=== PATIENT | female | born 1980 | race Caucasian/White ===

== ENCOUNTER 2016-12-09 19:33 | Inpatient (IN) | payer MEDICARE, OTHER ==
[~2016-12-09] VITALS: Ht 165.1 cm; Wt 67.1 kg
[~2016-12-09 19:33] MED LIST changes: -ONDA4TAB5 PO
[2016-12-09] MEDS ORDERED: HYDROMORPHONE 1 MG/1 ML DISP.SYRIN IM ONE (20:00)
[2016-12-09] MEDS ORDERED: HYDROMORPHONE 1 MG/1 ML DISP.SYRIN ONE (20:06)
[2016-12-09 20:50] LABS: CALCIUM 8.7 mg/dL (8.5-10.1); POTASSIUM 4.1 mmol/L (3.5-5.1)
[2016-12-09 20:53] LABS: CREATININE 1.9 mg/dL (0.6-1.3)
[2016-12-09] MEDS ORDERED: INSULIN REGULAR, HUMAN 100 UNIT in IV NORMAL SALINE 99 ML IV PRN ×4 (21:00→23:00)
[2016-12-09] MEDS ORDERED: IV NORMAL SALINE 1000 ML BAG IV ONE (21:00)
[2016-12-09 21:07] LABS: RED CELL DISTRIBUTION WIDTH 15.6 % (11.5-14.5)
[2016-12-09 21:14] LABS: WHITE BLOOD COUNT (AUTO) 6.5 K/uL (4.0-11.2)
[2016-12-09 21:15] LABS: HEMATOCRIT 34.6 % (37.0-47.0); HEMOGLOBIN 10.9 g/dL (12.0-16.0); MEAN CORPUSCULAR HEMOGLOBIN 33.2 uug (27.0-31.0); MEAN CORPUSCULAR HGB CONC 32 g/dL (32.0-37.0); MEAN CORPUSCULAR VOLUME 104.9 fL (81.0-99.0); PLATELET COUNT (AUTO) 245 K/uL (150-450)
[2016-12-09 21:16] LABS: BASOPHILS % (AUTO) 0.6 % (0.0-2.0); EOSINOPHILS % (AUTO) 0.3 % (0.0-7.0); LYMPHOCYTES # (AUTO) 1.4 K/uL (0.8-4.8); LYMPHOCYTES % (AUTO) 21.4 % (20.5-51.5); MONOCYTES # (AUTO) 0.6 K/uL (0.1-1.30); NEUTROPHILS # (AUTO) 4.5 K/uL (1.8-8.9); NEUTROPHILS % (AUTO) 68.7 % (38.5-71.5)
[2016-12-09 21:22] LABS: ALBUMIN 3.5 g/dL (3.4-5.0); BILIRUBIN,DIRECT 0.1 mg/dL (0.0-0.2); BILIRUBIN,TOTAL 0.5 mg/dL (0.2-1.0); TOTAL PROTEIN, SERUM 7.2 g/dL (6.4-8.2)
[2016-12-09] MEDS ORDERED: INSULIN REGULAR, HUMAN 300 UNIT/3 ML VIAL ONE (21:26)
[2016-12-09] MEDS ORDERED: ONDA4TAB5 PO (21:27)
[2016-12-09 21:29] LABS: *BILIRUBIN,URIN NEGATIVE (NEGATIVE); *BLOOD, URINE NEGATIVE (NEGATIVE); *CLARITY,URINE CLEAR (CLEAR); *COLOR,URINE YELLOW (YELLOW); *KETONES,URINE NEGATIVE (NEGATIVE); *PROTEIN,URINE NEGATIVE (NEGATIVE); *UROBILINOGEN,URINE 0.2 E.U./dl (NORMAL); LEUKOCYTE ESTERASE ,URINE NEGATIVE (NEGATIVE); NITRITE, URINE NEGATIVE (NEGATIVE); PH,URINE 6.5 (5.0-8.0)
[2016-12-09] MEDS ORDERED: ONDANSETRON IV *ER 4 MG/2 ML VIAL IV ONE (21:30)
[2016-12-09 21:34] LABS: ACANTHOCYTES 1+; ANISOCYTOSIS 1+; OVALOCYTES FEW
[2016-12-09 21:36] LABS: TROPONIN I < 0.017 ng/mL (0.00-0.056)
[2016-12-09 21:39] LABS: UGLUCOSE 2+ (NEGATIVE)
[2016-12-09 21:39] LABS: LACTIC ACID 2.5 mmol/L (0.4-2.0)
[2016-12-09] MEDS ORDERED: ONDANSETRON 4 MG/2 ML VIAL ONE (21:39)
[2016-12-09 21:40] LABS: RBC,URINE 0-3 /HPF (0-3); SQUAMOUS EPITHELIAL CELL,UR FEW /HPF (NONE SEEN); WBC,URINE 0-3 /HPF (0-3)
--- NOTE | 2016-12-09 22:43 | NUR ---
Pt. admitted to CCU , under care of Dr. Dominguez, Dx: Uncontrolled Diabetes Mellitus , Back pain Belongs List completed.
[2016-12-09 22:45] VITALS: BP 112/72
[2016-12-09 23:00] VITALS: BP 115/78
[2016-12-09] MEDS ORDERED: ONDANSETRON 4 MG/2 ML VIAL IV PRN (23:00)
[2016-12-09] MEDS ORDERED: ALBUTEROL SULFATE 1.25 MG/3 ML NEBU NEB PRN (23:00)
[2016-12-09] MEDS: TRAZODONE 100 MG TABLET PO SCH (23:00)
[2016-12-09] MEDS: FLUTICASONE/SALMETEROL 250/50 INHALER IH SCH (23:00)
[2016-12-09] MEDS ORDERED: ACETAMINOPHEN 325 MG TABLET PO PRN (23:00)
[2016-12-09] MEDS: BLOOD SUGAR DIAGNOSTIC 1 EACH STRIP VI PRN (23:00)
[2016-12-09] MEDS ORDERED: LORAZEPAM 2 MG/1 ML VIAL IV PRN (23:00)
[2016-12-09] MEDS: IV 1/2NS 1000 ML 1,000 ML IV PRN (23:15)
[2016-12-09] MEDS ORDERED: TRAZODONE 50 MG TABLET ONE (23:36)
[2016-12-10] VITALS (24 sets, daily range): BP systolic 91–114; BP diastolic 47–78
[2016-12-10] MEDS: BLOOD SUGAR DIAGNOSTIC 1 EACH STRIP VI PRN ×7 (00:01→06:00)
[2016-12-10] MEDS: MORPHINE SULFATE 2 MG/1 ML DISP.SYRIN IV PRN ×4 (00:26→20:31)
[2016-12-10] MEDS ORDERED: MORPHINE SULFATE 2 MG/1 ML DISP.SYRIN ONE ×2 (00:34→06:33)
--- NOTE | 2016-12-10 07:30 | NUR ---
PT IN NAD; VSS. PT IN NAD. PT IS A/OX4; PT IS ON CARDIAC MONITORING SHOWING NSR. PT ON RA SPO>93%. PT SKIN INTACT THROUGHOUT; SCD;S ON BLE; PT HAS A PATENT/INTACT 22G CATH THAT IS INFUSING IVF @ 90ML/HR. PT STATES PAIN IS 5/10; PT'S GOAL IS 5/10. PLEASE SEE NURSING NOTES FOR FURTHER DETAILS.
[2016-12-10 07:50] LABS: BASOPHILS # (AUTO) 0.2 K/uL (0.0-0.2); BASOPHILS % (AUTO) 2.7 % (0.0-2.0); EOSINOPHILS # (AUTO) 0.1 K/uL (0.0-0.7); EOSINOPHILS % (AUTO) 1.8 % (0.0-7.0); HEMATOCRIT 30.9 % (37.0-47.0); HEMOGLOBIN 9.9 g/dL (12.0-16.0); LYMPHOCYTES % (AUTO) 42.5 % (20.5-51.5); MEAN CORPUSCULAR HEMOGLOBIN 32.8 uug (27.0-31.0); MEAN CORPUSCULAR HGB CONC 32 g/dL (32.0-37.0); MEAN CORPUSCULAR VOLUME 102.1 fL (81.0-99.0); MONOCYTES # (AUTO) 0.8 K/uL (0.1-1.30); MONOCYTES % (AUTO) 10.7 % (0.0-11.0); NEUTROPHILS % (AUTO) 42.3 % (38.5-71.5); PLATELET COUNT (AUTO) 233 K/uL (150-450); RED BLOOD CELL COUNT(AUTO) 3.03 MIL/uL (4.20-5.40); RED CELL DISTRIBUTION WIDTH 15.4 % (11.5-14.5); WHITE BLOOD COUNT (AUTO) 7.1 K/uL (4.0-11.2)
[2016-12-10] MEDS ORDERED: Medication Not On Formulary EA (Lipase/Protease/Amylase (Creon Dr 36,000 Units Capsule) PO SCH (08:00)
[2016-12-10 08:21] LABS: THYROID STIMULATING HORMONE 4.431 mIU/mL (0.358-3.740)
[2016-12-10 08:37] LABS: ALBUMIN 2.9 g/dL (3.4-5.0); BILIRUBIN,TOTAL 0.4 mg/dL (0.2-1.0); CALCIUM 8.3 mg/dL (8.5-10.1); CREATININE 1.2 mg/dL (0.6-1.3); POTASSIUM 4.3 mmol/L (3.5-5.1)
[2016-12-10 08:38] LABS: MAGNESIUM 1.8 mg/dL (1.8-2.4); TOTAL PROTEIN, SERUM 6.1 g/dL (6.4-8.2)
[2016-12-10] MEDS: PANTOPRAZOLE SODIUM 40 MG TABLET.DR PO SCH ×2 (09:14→16:32)
[2016-12-10] MEDS: LIPASE PO SCH ×3 (09:14→16:33)
[2016-12-10] MEDS: AMYLASE PO SCH ×3 (09:14→16:33)
[2016-12-10] MEDS: PROTEASE PO SCH ×3 (09:14→16:33)
[2016-12-10] MEDS: PREGABALIN 25 MG CAPSULE PO SCH ×2 (09:14→16:32)
[2016-12-10] MEDS: SERTRALINE HCL 50 MG TABLET PO SCH (09:14)
[2016-12-10] MEDS: HALOPERIDOL 5 MG TABLET PO SCH ×2 (09:15→16:32)
[2016-12-10] MEDS: CHOLECALCIFEROL 1,000 UNIT TABLET PO SCH (09:15)
[2016-12-10] MEDS: AZATHIOPRINE 50 MG TABLET PO SCH (09:16)
[2016-12-10] MEDS: NICOTINE 21 MG/24HR PATCH TD SCH (09:16)
--- NOTE | 2016-12-10 10:00 | NUR ---
PT PLACED ON ACHS MODERATE SCALE PER ORDER
[2016-12-10] MEDS ORDERED: BLOOD SUGAR DIAGNOSTIC 1 EACH STRIP VI ONE (10:15)
[2016-12-10] MEDS ORDERED: DEXTROSE 50% 50 ML DISP.SYRIN IV PRN (10:15)
[2016-12-10] MEDS ORDERED: INSULIN REGULAR, HUMAN 300 UNITS/3 ML VIAL SQ PRN (10:15)
[2016-12-10 10:16] LABS: ANISOCYTOSIS 1+; TEAR DROP CELLS 1+
[2016-12-10] MEDS: CLONAZEPAM 0.5 MG TABLET PO SCH ×2 (10:18→16:32)
[2016-12-10] MEDS: INSULIN REGULAR, HUMAN 300 UNIT/3 ML VIAL SQ PRN ×3 (10:30→21:27)
[2016-12-10] MEDS: CYANOCOBALAMIN 1000 MCG/ML VIAL IM SCH (11:16)
[2016-12-10] MEDS: FLUTICASONE/SALMETEROL 250/50 INHALER IH SCH ×2 (11:21→23:12)
[2016-12-10] MEDS: IV 1/2NS 1000 ML 1,000 ML IV PRN ×2 (11:31→22:31)
[2016-12-10] MEDS: BLOOD SUGAR DIAGNOSTIC 1 EACH STRIP VI SCH ×3 (14:29→21:00)
[2016-12-10] MEDS: TRAZODONE 100 MG TABLET PO SCH (21:28)
[2016-12-11] VITALS (7 sets, daily range): BP systolic 92–113; BP diastolic 65–78
[2016-12-11] MEDS: MORPHINE SULFATE 2 MG/1 ML DISP.SYRIN IV PRN ×2 (05:29→11:59)
[2016-12-11 06:12] LABS: BASOPHILS # (AUTO) 0.1 K/uL (0.0-0.2); BASOPHILS % (AUTO) 1.8 % (0.0-2.0); EOSINOPHILS # (AUTO) 0.1 K/uL (0.0-0.7); EOSINOPHILS % (AUTO) 1.5 % (0.0-7.0); HEMATOCRIT 30.4 % (37.0-47.0); HEMOGLOBIN 9.5 g/dL (12.0-16.0); LYMPHOCYTES # (AUTO) 2.6 K/uL (0.8-4.8); MEAN CORPUSCULAR HEMOGLOBIN 32.1 uug (27.0-31.0); MEAN CORPUSCULAR HGB CONC 31 g/dL (32.0-37.0); MONOCYTES # (AUTO) 0.4 K/uL (0.1-1.30); MONOCYTES % (AUTO) 6.1 % (0.0-11.0); NEUTROPHILS # (AUTO) 2.8 K/uL (1.8-8.9); NEUTROPHILS % (AUTO) 47.6 % (38.5-71.5); PLATELET COUNT (AUTO) 238 K/uL (150-450); RED BLOOD CELL COUNT(AUTO) 2.96 MIL/uL (4.20-5.40); RED CELL DISTRIBUTION WIDTH 15.3 % (11.5-14.5)
[2016-12-11 06:21] LABS: ALBUMIN 2.8 g/dL (3.4-5.0); BILIRUBIN,TOTAL 0.3 mg/dL (0.2-1.0); CALCIUM 8.3 mg/dL (8.5-10.1); CREATININE 1.2 mg/dL (0.6-1.3); MAGNESIUM 1.7 mg/dL (1.8-2.4); PHOSPHOROUS 3.4 mg/dL (2.5-4.9); POTASSIUM 5.2 mmol/L (3.5-5.1); TOTAL PROTEIN, SERUM 5.9 g/dL (6.4-8.2)
[2016-12-11] MEDS: BLOOD SUGAR DIAGNOSTIC 1 EACH STRIP VI SCH ×2 (06:33→11:40)
[2016-12-11] MEDS: INSULIN REGULAR, HUMAN 300 UNIT/3 ML VIAL SQ PRN (06:34)
--- NOTE | 2016-12-11 08:33 | NUR ---
RECHECKED PATIENT BLOOD SUGAR 267. PATIENT INSULIN COVERAGED EARLY DUE TO CRITICAL HIGH IN AM. PATIENT REFUSING BREAKFAST AT THIS TIME.
[2016-12-11] MEDS: CYANOCOBALAMIN 1000 MCG/ML VIAL IM SCH ×2 (08:45→09:00)
[2016-12-11] MEDS: HALOPERIDOL 5 MG TABLET PO SCH (08:46)
[2016-12-11] MEDS: AZATHIOPRINE 50 MG TABLET PO SCH (08:46)
[2016-12-11] MEDS: CLONAZEPAM 0.5 MG TABLET PO SCH (08:47)
[2016-12-11] MEDS: PREGABALIN 25 MG CAPSULE PO SCH (08:48)
[2016-12-11] MEDS: PANTOPRAZOLE SODIUM 40 MG TABLET.DR PO SCH (08:49)
[2016-12-11] MEDS: PROTEASE PO SCH ×2 (08:49→11:44)
[2016-12-11] MEDS: LIPASE PO SCH ×2 (08:49→11:44)
[2016-12-11] MEDS: AMYLASE PO SCH ×2 (08:49→11:44)
[2016-12-11] MEDS: CHOLECALCIFEROL 1,000 UNIT TABLET PO SCH (08:51)
[2016-12-11] MEDS: SERTRALINE HCL 50 MG TABLET PO SCH (08:51)
[2016-12-11] MEDS: NICOTINE 21 MG/24HR PATCH TD SCH (08:51)
[2016-12-11] MEDS ORDERED: MAGNESIUM OXIDE 400 MG TABLET PO ONE (09:00)
--- NOTE | 2016-12-11 10:51 | NUR ---
DOCTOR LARY IN UNIT TO SEE PATIENT. PLANNING FOR DISCHARGE. PATIENT HAS INSULIN PUMP ADAPTER THAT WILL BE BROUGHT IN FROM HOME.
--- NOTE | 2016-12-11 11:27 | NUR ---
Discharge Plan: The patient's discharge plan is to return back home [[id number], [place] [address]] once medically cleared.
[2016-12-11] MEDS: FLUTICASONE/SALMETEROL 250/50 INHALER IH SCH (11:44)
--- NOTE | 2016-12-11 12:56 | NUR ---
PATIENT REFUSED BOTH VACCINES FLU/ PNA
--- NOTE | 2016-12-11 13:26 | NUR ---
ALL DISCHARGE PAPERWORK GIVEN. PATIENT UNDERSTOOD AND SIGNED. INSTRUCTED PATIENT TO CHECK BLOOD SUGAR PRIOR TO USING INSULIN PUMP WHEN SHE GETS HOME. PATIENT IS WAITING IN BED FOR HER RIDE TO COME.
--- NOTE | 2016-12-11 14:28 | NUR ---
Patient is 36 y/o female with hx of psychiatric issues and difficult to control diabetes, present due to fell out of bed and injuring her back. After 2 days in ICU patient was eager to leave the hospital. Time of visit ,gave diet education and dm handout to patient prior to d/c home. encourage pt to follow low sugar and follow right portion sizes. was tolerating current diet ([id number]) and eating 50-80% of meals. Anthropometry:Ht 65",current wt is 148lb,BMI 24.6-wnl labs: 12/11 POC 94-HAS BEEN IMPROVED,GLUCOSE 343,[id number] NUTRITION DIAGNOSIS: ALTERED NUTRITION LAB VALUES RELATED TO KNOWLEDGE DEFICIT, EVIDENCED BY ABOVE LABS INTERVENTION: DIET EDUCATION PROVIDED PRIOR TO D/C MONITOR:PO INTAKE,WT,NEW LABS Addendum: 12/11/16 at [address] Amended: Links added.
== END 2016-12-11 13:30 | disposition home or self-care (01) | DRG 637 ==
LOC: ER 19:33 → CCU 22:07
PROVIDERS: ADMIT Internal Medicine; ATTEND Internal Medicine
DX: E11.65 Type 2 diabetes mellitus with hyperglycemia (principal); N17.0 Acute kidney failure with tubular necrosis; D68.59 Other primary thrombophilia; Z96.41 Presence of insulin pump (external) (internal); Y92.003 Bedroom of unspecified non-institutional (private) residence as the place of occurrence of the external cause; W06.XXXA Fall from bed, initial encounter; S20.229A Contusion of unspecified back wall of thorax, initial encounter; Z79.4 Long term (current) use of insulin; Z88.2 Allergy status to sulfonamides; Z88.1 Allergy status to other antibiotic agents; Z91.041 Radiographic dye allergy status; Z91.012 Allergy to eggs; Z91.040 Latex allergy status; Z91.011 Allergy to milk products; M32.9 Systemic lupus erythematosus, unspecified; Z86.73 Personal history of transient ischemic attack (TIA), and cerebral infarction without residual deficits; M79.7 Fibromyalgia; G89.4 Chronic pain syndrome; H54.8 Legal blindness, as defined in USA; Z90.81 Acquired absence of spleen; Z90.411 Acquired partial absence of pancreas; E11.43 Type 2 diabetes mellitus with diabetic autonomic (poly)neuropathy; E87.5 Hyperkalemia; V89.2XXS Person injured in unspecified motor-vehicle accident, traffic, sequela; Z74.09 Other reduced mobility; F31.9 Bipolar disorder, unspecified; F41.9 Anxiety disorder, unspecified; D53.9 Nutritional anemia, unspecified; F17.210 Nicotine dependence, cigarettes, uncomplicated; E53.8 Deficiency of other specified B group vitamins; Z79.899 Other long term (current) drug therapy
CPT/HCPCS: 36415; 70030-TC; 71010; 72072; 83605; 83690; 83735; 84100; 84443; 84703; 85025; 85730; 86140; 87040; 87086; 93005; A4663; J1170; J1815; J2270; J2405; J3420; J3490; J7030; J7500

== ENCOUNTER → 2016-12-09 | Emergency (ER) | payer SELFPAY ==
[~2016-12-09] MED LIST: ALBU2.5V38 NEB; ALBU8HFA4 INH; AZAT50TA PO; CHOL50004 PO; CLON0.5T PO; DRON5CAP PO; FLUT1DIS28 IH; HALO10TA13 PO; HYDR200T4 PO; INSU100V; LIPA1CAP15 PO; MILN50TA PO; ONDA4TAB5 PO; ONDA4VIA30 IV; OXYC-34 PO; PANT40TA4 PO; PREG150C PO; RIZA10TA28 PO; SERT50TA PO; TRAZ-144 PO; TRAZ-147 PO
== END | disposition left against medical advice (07) ==
LOC: EDBD → CANPREER → ER 19:20 → MERGE 20:00
DX: Z53.21 Procedure and treatment not carried out due to patient leaving prior to being seen by health care provider (principal)

== ENCOUNTER 2017-01-12 15:30 | Inpatient (IN) | payer MEDICARE, OTHER ==
[~2017-01-12] VITALS: Ht 162.6 cm; Wt 62.1 kg
[~2017-01-12 15:30] MED LIST changes: -HYDR200T4 PO; -INSU100V; +ONDA4TAB5 PO; -ONDA4VIA30 IV; -OXYC-34 PO
--- NOTE | 2017-01-12 15:56 | NUR ---
DR MARTINEZ AT THE BEDSIDE FOR EVAL AND EXAM.
[2017-01-12] MEDS ORDERED: IV NORMAL SALINE 1000 ML BAG IV ONE (16:15)
[2017-01-12] MEDS ORDERED: ONDANSETRON 4 MG/2 ML VIAL IV ONE (16:15)
[2017-01-12] MEDS ORDERED: MORPHINE SULFATE 2 MG/1 ML DISP.SYRIN IV ONE (16:15)
[2017-01-12 16:32] LABS: BASOPHILS # (AUTO) 0.2 K/uL (0.0-8.0); BASOPHILS % (AUTO) 0.9 % (0.0-2.0); HEMATOCRIT 49.8 % (37-47); HEMOGLOBIN 16.9 G/DL (12.0-16.0); LYMPHOCYTES # (AUTO) 0.9 K/uL (20.0-40.0); LYMPHOCYTES % (AUTO) 4.7 % (20.5-51.5); MEAN CORPUSCULAR HEMOGLOBIN 34.1 UUG (27.0-31.0); MEAN CORPUSCULAR HGB CONC 34 g/dL (32.0-37.0); MEAN CORPUSCULAR VOLUME 100.8 FL (81.0-99.0); MONOCYTES # (AUTO) 0.5 K/uL (2.0-10.0); MONOCYTES % (AUTO) 2.5 % (0.0-11.0); NEUTROPHILS # (AUTO) 17.7 K/uL (1.8-8.9); NEUTROPHILS % (AUTO) 91.9 % (38.5-71.5); PLATELET COUNT (AUTO) 249 K/UL (150-450); RED BLOOD CELL COUNT(AUTO) 4.94 MIL/UL (4.2-5.4); RED CELL DISTRIBUTION WIDTH 14.7 % (11.5-14.5); WHITE BLOOD COUNT (AUTO) 19.3 K/UL (4.0-11.2)
[2017-01-12] MEDS ORDERED: MORPHINE SULFATE 4 MG/1 ML DISP.SYRIN ONE (16:34)
[2017-01-12] MEDS ORDERED: ONDANSETRON 4 MG/2 ML VIAL ONE ×2 (16:34→17:41)
[2017-01-12 16:42] LABS: CALCIUM 9.9 mg/dL (8.5-10.1); POTASSIUM 2.9 mmol/L (3.5-5.1)
[2017-01-12 16:45] LABS: CREATININE 2.3 mg/dL (0.6-1.3)
[2017-01-12 16:48] LABS: ALBUMIN 4.2 g/dL (3.4-5.0); BILIRUBIN,DIRECT 0.2 mg/dL (0.0-0.2); TOTAL PROTEIN, SERUM 8.5 g/dL (6.4-8.2)
[2017-01-12] MEDS ORDERED: POTASSIUM CHLORIDE 20 MEQ TAB.PRT.SR PO ONE (17:15)
[2017-01-12] MEDS ORDERED: ONDANSETRON IV *ER 4 MG/2 ML VIAL IV ONE (17:30)
[2017-01-12] MEDS ORDERED: POTASSIUM CHLORIDE 20 MEQ TAB.PRT.SR ONE (17:31)
[2017-01-12 17:37] LABS: *URINE HCG, QUAL NEGATIVE (NEGATIVE)
[2017-01-12 17:38] LABS: *BLOOD, URINE 2+ (NEGATIVE); *CLARITY,URINE CLOUDY (CLEAR); *COLOR,URINE YELLOW (YELLOW); *KETONES,URINE TRACE (NEGATIVE); LEUKOCYTE ESTERASE ,URINE NEGATIVE (NEGATIVE); NITRITE, URINE NEGATIVE (NEGATIVE); UGLUCOSE NEGATIVE (NEGATIVE)
[2017-01-12 17:40] LABS: *BILIRUBIN,URIN 2+ (NEGATIVE); *PROTEIN,URINE 3+ (NEGATIVE)
[2017-01-12 17:46] LABS: ICTOTEST POSITIVE (NEGATIVE)
[2017-01-12 17:49] LABS: BACTERIA,URINE FEW /HPF (NONE SEEN); SQUAMOUS EPITHELIAL CELL,UR MODERATE /HPF (NONE SEEN); WBC,URINE 0-3 /HPF (0-3)
[2017-01-12] MEDS ORDERED: LORAZEPAM 2 MG/1 ML VIAL IV PRN (18:00)
[2017-01-12] MEDS ORDERED: ONDANSETRON 4 MG/2 ML VIAL IV PRN (18:00)
[2017-01-12] MEDS ORDERED: ALBUTEROL SULFATE 2.5 MG/3 ML NEBU NEB PRN (18:00)
--- NOTE | 2017-01-12 18:02 | NUR ---
Patient is resting comfortably in bed with eyes closed, NAD NOTED.
[2017-01-12] MEDS: BLOOD SUGAR DIAGNOSTIC 1 EACH STRIP VI SCH ×2 (18:15→23:34)
[2017-01-12] MEDS ORDERED: DEXTROSE 50% 50 ML DISP.SYRIN IV PRN (18:15)
[2017-01-12] MEDS ORDERED: ALBUTEROL SULFATE 2.5 MG/3 ML NEBU ONE (18:22)
--- NOTE | 2017-01-12 19:00 | NUR ---
Received report from CIARA Fatima RN.
--- NOTE | 2017-01-12 19:24 | NUR ---
CLINICAL PHARMACY NOTE:VANCOMYCIN DOSING Request for vancomycin dosing on 36 y/o female 5'5" 150lbs for suspected infection Temp 97.9, BUN 40, Scr 2.3 WBC 19.3 also on Merrem Start Vancomycin 1gm ivpb q30h. Estimated trough 14.7. Will order trough level prior to 4th dose. Will continue to monitor.
--- NOTE | 2017-01-12 19:38 | NUR ---
Pt. admitted to TELE, under care of Dr. Dominguez Belongs List completed
[2017-01-12 20:00] VITALS: BP 156/104
--- NOTE | 2017-01-12 20:00 | NUR ---
Admitted patient with diagnosis of Dehydration and Renal Failure. AAO x 4, accompanied by her caregiver. Routine admission care done. Plan of care initiated.
[2017-01-12] MEDS: IV 1/2NS 1000 ML 1,000 ML IV PRN (20:57)
[2017-01-12] MEDS ORDERED: VANCOMYCIN IV 1 G in PREMIXED 0 EACH IV SCH (21:00)
[2017-01-12] MEDS: MEROPENEM 500 MG in IV NORMAL SALINE 50 ML IV SCH (21:09)
--- NOTE | 2017-01-12 21:09 | NUR ---
Complaint of mid abdominal pain in scale of 10/10, medicated as needed and ordered. Will monitor.
[2017-01-12] MEDS: MORPHINE SULFATE 2 MG/1 ML DISP.SYRIN IV PRN (21:10)
[2017-01-12] MEDS: INSULIN REGULAR, HUMAN 300 UNIT/3 ML VIAL SQ PRN ×2 (21:22→23:37)
[2017-01-12] MEDS: FLUTICASONE/SALMETEROL 250/50 INHALER IH SCH (21:24)
--- NOTE | 2017-01-12 21:40 | NUR ---
Resting comfortably at this time, denies any pain/discomforts. Safety measures maintained.
[2017-01-13] VITALS (13 sets, daily range): BP systolic 102–156; BP diastolic 68–108
--- NOTE | 2017-01-13 | NUR ---
BS 368 mg/dl. Humalog insulin coverage given per sliding scale. Pt denies any s/s of hyperglycemia.
[2017-01-13] MEDS: MORPHINE SULFATE 2 MG/1 ML DISP.SYRIN IV PRN ×4 (01:30→16:04)
--- NOTE | 2017-01-13 01:30 | NUR ---
Medicated for pain as needed and ordered. Will monitor.
[2017-01-13] MEDS: BLOOD SUGAR DIAGNOSTIC 1 EACH STRIP VI SCH ×8 (05:51→20:11)
--- NOTE | 2017-01-13 06:16 | NUR ---
Medicated 3x for abdominal pain throughout the shift with relief. Slept at short interval. BS at 0553 dropped to 59mg/dl. D50% was given as ordered and needed. Rechecked BS after 15 minutes 332 mg/dl. Will monitor. Charge Nurse aware.
--- NOTE | 2017-01-13 06:50 | NUR ---
BS rechecked this time 299 mg/dl. Continue to monitor.
--- NOTE | 2017-01-13 06:58 | NUR ---
Report given to Am nurse.
--- NOTE | 2017-01-13 07:00 | NUR ---
PATIENT RECEIVED IN ROOM RESTING IN BED WITH EYES CLOSED, EASILY AWAKEN IN NO ACUTE DISTRESS. SR ON CONTROL TOWER RADIO OPERATOR. RESPIRATIONS EVEN AND UNLABORED. IVF RUNNING 1/2 NS. SAFETY MAINTAINED. 2
[2017-01-13 07:02] LABS: BASOPHILS # (AUTO) 0.1 K/uL (0.0-8.0); BASOPHILS % (AUTO) 0.4 % (0.0-2.0); EOSINOPHILS % (AUTO) 0.2 % (0.0-7.0); HEMATOCRIT 42.8 % (37-47); HEMOGLOBIN 14.6 G/DL (12.0-16.0); LYMPHOCYTES # (AUTO) 1.9 K/uL (20.0-40.0); LYMPHOCYTES % (AUTO) 13.8 % (20.5-51.5); MEAN CORPUSCULAR HEMOGLOBIN 34.2 UUG (27.0-31.0); MEAN CORPUSCULAR HGB CONC 34 g/dL (32.0-37.0); MEAN CORPUSCULAR VOLUME 100.3 FL (81.0-99.0); MONOCYTES # (AUTO) 1.1 K/uL (2.0-10.0); MONOCYTES % (AUTO) 7.7 % (0.0-11.0); NEUTROPHILS # (AUTO) 10.9 K/uL (1.8-8.9); NEUTROPHILS % (AUTO) 77.9 % (38.5-71.5); PLATELET COUNT (AUTO) 215 K/UL (150-450); RED BLOOD CELL COUNT(AUTO) 4.26 MIL/UL (4.2-5.4); RED CELL DISTRIBUTION WIDTH 15.1 % (11.5-14.5)
[2017-01-13 07:03] LABS: ALBUMIN 3.3 g/dL (3.4-5.0); BILIRUBIN,TOTAL 0.7 mg/dL (0.2-1.0); CALCIUM 8.7 mg/dL (8.5-10.1); MAGNESIUM 2.1 mg/dL (1.8-2.4); PHOSPHOROUS 2.6 mg/dL (2.5-4.9); POTASSIUM 3.5 mmol/L (3.5-5.1); TOTAL PROTEIN, SERUM 6.8 g/dL (6.4-8.2)
[2017-01-13 07:05] LABS: CREATININE 1.5 mg/dL (0.6-1.3)
[2017-01-13] MEDS: PANTOPRAZOLE SODIUM 40 MG VIAL IV SCH (08:09)
[2017-01-13] MEDS: FLUTICASONE/SALMETEROL 250/50 INHALER IH SCH ×2 (08:09→20:25)
[2017-01-13] MEDS: MEROPENEM 500 MG in IV NORMAL SALINE 50 ML IV SCH ×2 (08:10→20:10)
--- NOTE | 2017-01-13 10:02 | NUR ---
Clinical Pharmacy Note: Vancomycin Dosing per Pharmacy Subjective: Vancomycin IV to continue on this 36 yo female for leukocytosis (waiting for MD note). Objective: BUN 31/Scr 1.5 WBC 14 Temperature 98 ht 5'5'' wt 150lb Assessment/Plan: Since srcr has decreased, will change vancomycin dose from 1gm IVPB q30h to 1gm IVPB q19h for predicted vancomycin trough level of 17.8 at steady state. Second dose is due today at 1700. Plan to draw vancomycin trough level before 4th dose (not yet ordered) Will continue to monitor and order another level/adjust regimen if renal function were to change. Will follow daily.
[2017-01-13 10:13] LABS: ANISOCYTOSIS 1+; BAND % (MANUAL) 11 % (0-10); EOSINOPHILS % (MANUAL) 1 % (0-8); LYMPHOCYTES % (MANUAL) 16 % (20-40); MONOCYTES % (MANUAL) 5 % (2-10); NEUTROPHILS % (MANUAL) 67 % (42-75); PLATELET ESTIMATE ADEQUATE
[2017-01-13] MEDS: IV 1/2NS 1000 ML 1,000 ML IV PRN (10:53)
[2017-01-13] MEDS: INSULIN REGULAR, HUMAN 300 UNIT/3 ML VIAL SQ PRN (12:18)
[2017-01-13] MEDS ORDERED: INSULIN REGULAR, HUMAN 300 UNIT/3 ML VIAL SQ PRN ×2 (12:30→17:45)
[2017-01-13] MEDS ORDERED: INSULIN REGULAR, HUMAN 300 UNIT/3 ML VIAL SQ ONE (12:30)
[2017-01-13] MEDS ORDERED: INSULIN REGULAR, HUMAN 300 UNITS/3 ML VIAL SQ PRN ×2 (12:30→17:45)
[2017-01-13] MEDS ORDERED: DEXTROSE 50% 50 ML DISP.SYRIN IV PRN ×2 (12:30→17:45)
--- NOTE | 2017-01-13 12:35 | NUR ---
PATIENT'S BS 518. ALERT AWAKE AND ORIENTED X4, ASYMPTOMATIC. DETAILED REPORT GIVEN TO JO SCHWARZ POLICE STENOGRAPHER. SEE NEW ORDERS.
[2017-01-13] MEDS ORDERED: MIRALAX 17 GM POWD.PACK PO PRN (13:15)
[2017-01-13] MEDS ORDERED: MILNACIPRAN HCL 50 MG PO SCH (13:15)
[2017-01-13] MEDS ORDERED: Medication Not On Formulary EA (Lipase/Protease/Amylase (Creon Dr 36,000 Units Capsule) PO SCH (13:15)
[2017-01-13] MEDS ORDERED: Medication Not On Formulary EA (Pregabalin (Lyrica) 200 MG) PO SCH (13:15)
[2017-01-13] MEDS: SERTRALINE HCL 50 MG TABLET PO SCH (13:48)
[2017-01-13] MEDS: DOCUSATE SODIUM 100 MG CAPSULE PO SCH ×2 (13:48→20:25)
[2017-01-13] MEDS: CHOLECALCIFEROL 1,000 UNIT TABLET PO SCH (13:48)
--- NOTE | 2017-01-13 14:02 | NUR ---
SBAR REPORT GIVEN TO PRINCESS RUFF.
--- NOTE | 2017-01-13 14:15 | NUR ---
PATIENT TRANSFERRED TO CCU.
--- NOTE | 2017-01-13 14:26 | NUR ---
Patient down from telemetry vitals stable Hr. 104, RR 14, 128/91. blood sugar of 421mm/hg. Saturation of 99%. AAOX4. assisted herself for transfer.
[2017-01-13] MEDS ORDERED: INSULIN REGULAR, HUMAN 100 UNIT in IV NORMAL SALINE 99 ML IV PRN ×2 (14:45)
[2017-01-13] MEDS ORDERED: BLOOD SUGAR DIAGNOSTIC 1 EACH STRIP VI SCH (16:30)
[2017-01-13] MEDS ORDERED: VANCOMYCIN IV 1 G in PREMIXED 0 EACH IV SCH (17:00)
--- NOTE | 2017-01-13 17:11 | NUR ---
Blood sugar of 84 obtained at this time, Dr. Schmid/ [place] notified. Awaiting call back.
--- NOTE | 2017-01-13 17:14 | NUR ---
A call from Dr. Schmid orders to dcd Insulin drip. see orders.
[2017-01-13] MEDS: PREGABALIN 100 MG CAPSULE PO SCH (17:46)
[2017-01-13] MEDS: LIPASE/PROTEASE/AMYLASE 4200 UNITS CAPSULE.DR PO SCH (17:46)
[2017-01-13] MEDS: HALOPERIDOL 5 MG TABLET PO SCH (17:54)
[2017-01-13 18:02] LABS: *BILIRUBIN,URIN NEGATIVE (NEGATIVE); *BLOOD, URINE Trace-intact (NEGATIVE); *CLARITY,URINE CLEAR (CLEAR); *COLOR,URINE YELLOW (YELLOW); *KETONES,URINE TRACE (NEGATIVE); *PROTEIN,URINE NEGATIVE (NEGATIVE); *UROBILINOGEN,URINE 0.2 E.U./dl (NORMAL); LEUKOCYTE ESTERASE ,URINE NEGATIVE (NEGATIVE); NITRITE, URINE NEGATIVE (NEGATIVE); PH,URINE 6.5 (5.0-8.0)
--- NOTE | 2017-01-13 18:06 | NUR ---
blood sugar of 27 repeated notified to Md. 1 amp of D50 given per protocol.
[2017-01-13 18:14] LABS: *CREATININE,URINE 30.9 mg/dL (30-125); *URINE TOTAL PROTEIN RANDOM 7.1 mg/dL (<150/24HR); UGLUCOSE 2+ (NEGATIVE)
[2017-01-13 18:15] LABS: RBC,URINE 0-3 /HPF (0-3); SQUAMOUS EPITHELIAL CELL,UR MODERATE /HPF (NONE SEEN); WBC,URINE 0-3 /HPF (0-3); YEAST,URINE RARE /HPF (NONE SEEN)
--- NOTE | 2017-01-13 18:28 | NUR ---
repeat Accu- check post one amp of D50 265mm/hg Dr. Dominguez notified.
[2017-01-13] MEDS ORDERED: INSULIN GLARGINE,HUM 300 UNITS/3 ML CARTRIDGE SQ SCH (21:00)
[2017-01-13] MEDS ORDERED: INSULIN DETEMIR 300 UNIT/3 ML CARTRIDGE SQ SCH ×2 (21:00)
[2017-01-13] MEDS ORDERED: TRAZODONE 100 MG TABLET PO SCH (21:00)
[2017-01-14] VITALS (11 sets, daily range): BP systolic 101–145; BP diastolic 60–97
[2017-01-14] MEDS: IV 1/2NS 1000 ML 1,000 ML IV PRN (00:28)
[2017-01-14] MEDS: BLOOD SUGAR DIAGNOSTIC 1 EACH STRIP VI SCH (07:30)
[2017-01-14] MEDS: MEROPENEM 500 MG in IV NORMAL SALINE 50 ML IV SCH (08:10)
[2017-01-14] MEDS: LIPASE/PROTEASE/AMYLASE 4200 UNITS CAPSULE.DR PO SCH (08:11)
[2017-01-14] MEDS: DOCUSATE SODIUM 100 MG CAPSULE PO SCH (08:12)
[2017-01-14] MEDS: HALOPERIDOL 5 MG TABLET PO SCH (08:12)
[2017-01-14] MEDS: FLUTICASONE/SALMETEROL 250/50 INHALER IH SCH (08:12)
[2017-01-14] MEDS: PANTOPRAZOLE SODIUM 40 MG VIAL IV SCH (08:12)
[2017-01-14] MEDS: PREGABALIN 100 MG CAPSULE PO SCH (08:13)
[2017-01-14] MEDS: SERTRALINE HCL 50 MG TABLET PO SCH (08:13)
[2017-01-14] MEDS: CHOLECALCIFEROL 1,000 UNIT TABLET PO SCH (08:13)
[2017-01-14] MEDS: MORPHINE SULFATE 2 MG/1 ML DISP.SYRIN IV PRN (08:26)
--- NOTE | 2017-01-14 08:29 | NUR ---
patient states she is not allergic to eggs. taken off allergie list and reordered breakfast. patient also requesting coca-cola. informed her she was on diabetic diet and cola has a lot of sugar. she stated she drinks it all the time. informed her that she can only have diet soda. she agreed to take the diet coke.
--- NOTE | 2017-01-14 09:32 | NUR ---
patient walking with PT tolerating well
--- NOTE | 2017-01-14 10:00 | NUR ---
lab came to redraw patient. 1st time patient had refused.
[2017-01-14 10:08] LABS: BASOPHILS # (AUTO) 0.1 K/uL (0.0-8.0); BASOPHILS % (AUTO) 1.1 % (0.0-2.0); EOSINOPHILS # (AUTO) 0.1 K/uL (0.0-0.7); EOSINOPHILS % (AUTO) 0.5 % (0.0-7.0); HEMATOCRIT 37.7 % (37-47); HEMOGLOBIN 12.7 G/DL (12.0-16.0); LYMPHOCYTES # (AUTO) 1.4 K/uL (20.0-40.0); LYMPHOCYTES % (AUTO) 12.8 % (20.5-51.5); MEAN CORPUSCULAR HEMOGLOBIN 34.5 UUG (27.0-31.0); MEAN CORPUSCULAR HGB CONC 34 g/dL (32.0-37.0); MEAN CORPUSCULAR VOLUME 102.2 FL (81.0-99.0); MONOCYTES # (AUTO) 0.7 K/uL (2.0-10.0); MONOCYTES % (AUTO) 6.2 % (0.0-11.0); NEUTROPHILS # (AUTO) 8.8 K/uL (1.8-8.9); NEUTROPHILS % (AUTO) 79.4 % (38.5-71.5); PLATELET COUNT (AUTO) 211 K/UL (150-450); RED BLOOD CELL COUNT(AUTO) 3.69 MIL/UL (4.2-5.4); WHITE BLOOD COUNT (AUTO) 11.1 K/UL (4.0-11.2)
[2017-01-14 10:18] LABS: ALBUMIN 3.2 g/dL (3.4-5.0); BILIRUBIN,TOTAL 0.6 mg/dL (0.2-1.0); CALCIUM 8.4 mg/dL (8.5-10.1); MAGNESIUM 2.1 mg/dL (1.8-2.4); PHOSPHOROUS 2.3 mg/dL (2.5-4.9); POTASSIUM 3.6 mmol/L (3.5-5.1); TOTAL PROTEIN, SERUM 6.5 g/dL (6.4-8.2)
[2017-01-14 10:25] LABS: CREATININE 1.5 mg/dL (0.6-1.3)
[2017-01-14 10:26] LABS: THYROID STIMULATING HORMONE 1.019 mIU/mL (0.358-3.740)
[2017-01-14 10:28] LABS: BAND % (MANUAL) 6 % (0-10); EOSINOPHILS % (MANUAL) 1 % (0-8); LYMPHOCYTES % (MANUAL) 20 % (20-40); MONOCYTES % (MANUAL) 4 % (2-10); NEUTROPHILS % (MANUAL) 69 % (42-75); PLATELET ESTIMATE ADEQUATE
[2017-01-14 10:29] LABS: ANISOCYTOSIS 1+
--- NOTE | 2017-01-14 10:40 | NUR ---
PATIENT INSIST ON GOING HOME. PATIENT STATES IF SHE DOESNT GET DISCHARGED SHE WILL LEAVE AMA. JO [employer] SALES AGENT IN THE UNIT TO ROUND ON PATIENT. SPOKE TO PATIENT THAT SHE NEEDS TO STAY IN THE HOSPITAL FOR FURTHER EVALUATION ON BLOOD SUGAR STABILIZE. PATIENT CAN BE TRANSFERRED TO THE MEDICAL FLOOR AND OUT OF ICU. PATIENT REFUSED AND INSISTS ON LEAVING AMA. PATIENT DOES NOT HAVE RIDE HOME. INFORMED THAT WE CAN NOT PROVIDE TRANSPORTATION IF SHE IS LEAVING AGAINST MEDICAL ADVICE. STRONGLY SUGGESTED TO STAY IN THE HOSPITAL FOR FURTHER MONITORING AND FOR HER SAFETY UNTIL SHE CAN GET A RIDE. PATIENT INSISTS ON LEAVING AMA WALKING HOME.
--- NOTE | 2017-01-14 11:05 | NUR ---
PATIENT SIGNED AMA FORM AND GOT DRESSED AND LEFT THE FLOOR. CUT OFF PATIENT ARMBAND AND DISCONTINUED IV. PATIENT WAS ESCORTED OUT B SECURITY.
== END 2017-01-14 11:05 | disposition left against medical advice (07) | DRG 682 ==
LOC: ER 15:35 → TELE 19:14 → CCU 01-13 14:15
PROVIDERS: ADMIT Internal Medicine; ATTEND Internal Medicine
DX: N17.0 Acute kidney failure with tubular necrosis (principal); R65.11 Systemic inflammatory response syndrome (SIRS) of non-infectious origin with acute organ dysfunction; E87.1 Hypo-osmolality and hyponatremia; E44.0 Moderate protein-calorie malnutrition; D68.9 Coagulation defect, unspecified; E86.0 Dehydration; E87.6 Hypokalemia; G89.4 Chronic pain syndrome; E86.9 Volume depletion, unspecified; F29 Unspecified psychosis not due to a substance or known physiological condition; Z79.4 Long term (current) use of insulin; E11.65 Type 2 diabetes mellitus with hyperglycemia; D75.1 Secondary polycythemia; E83.39 Other disorders of phosphorus metabolism; F25.9 Schizoaffective disorder, unspecified; F31.9 Bipolar disorder, unspecified; F41.9 Anxiety disorder, unspecified; Z86.73 Personal history of transient ischemic attack (TIA), and cerebral infarction without residual deficits; Z87.01 Personal history of pneumonia (recurrent); Z90.81 Acquired absence of spleen; H54.42 Blindness, left eye, normal vision right eye; R74.0 Nonspecific elevation of levels of transaminase and lactic acid dehydrogenase [LDH]; Z91.81 History of falling; M79.7 Fibromyalgia; I10 Essential (primary) hypertension; Z90.410 Acquired total absence of pancreas; V89.2XXS Person injured in unspecified motor-vehicle accident, traffic, sequela; K76.0 Fatty (change of) liver, not elsewhere classified; R53.1 Weakness; K59.00 Constipation, unspecified; M32.9 Systemic lupus erythematosus, unspecified
CPT/HCPCS: 36415; 71010; 83605; 83690; 83735; 84100; 84156; 84300; 84443; 84703; 85025; 85730; 87040; 87086; 93005; 97001; A4663; C9113; J1815; J2060; J2185; J2270; J2405; J3370; J3490; J7030

== ENCOUNTER 2017-01-31 15:41 | Emergency (ER) | payer MEDICARE, OTHER ==
[~2017-01-31] VITALS: Ht 162.6 cm; Wt 67.1 kg
[2017-01-31] MEDS ORDERED: ONDANSETRON HCL 4 MG TABLET PO ONE (16:00)
[2017-01-31] MEDS ORDERED: MORPHINE SULFATE 2 MG/1 ML DISP.SYRIN IM ONE (16:00)
[2017-01-31] MEDS ORDERED: ONDANSETRON ODT 4 MG TAB.RAPDIS ONE (16:01)
[2017-01-31] MEDS ORDERED: MORPHINE SULFATE 4 MG/1 ML DISP.SYRIN ONE (16:01)
--- NOTE | 2017-01-31 16:38 | NUR ---
Patient ambulated to the bathroom with slow steady gait, NAD, pending disposition
[2017-01-31 17:27] LABS: *URINE HCG, QUAL NEGATIVE (NEGATIVE)
--- NOTE | 2017-01-31 17:45 | NUR ---
Patient ambulated to bathroom with steady gait.
--- NOTE | 2017-01-31 18:07 | NUR ---
Patient is eating dinner tray with good appetite. Patient says someone will come and pick her up. Patient discharged to home in stable conditon. Written and verbal after care instructions given to patient. Patient verbalizes understanding of instructions.
== END 2017-01-31 18:27 | disposition home or self-care (01) ==
LOC: ER 15:41
DX: M54.5 Low back pain (principal); E11.65 Type 2 diabetes mellitus with hyperglycemia; F31.9 Bipolar disorder, unspecified; F41.9 Anxiety disorder, unspecified; F17.200 Nicotine dependence, unspecified, uncomplicated; Z88.0 Allergy status to penicillin; Z88.1 Allergy status to other antibiotic agents; Z88.2 Allergy status to sulfonamides; Z88.8 Allergy status to other drugs, medicaments and biological substances; Z91.040 Latex allergy status; Z79.4 Long term (current) use of insulin; W18.30XA Fall on same level, unspecified, initial encounter; Y93.89 Activity, other specified; Y99.8 Other external cause status; Y92.89 Other specified places as the place of occurrence of the external cause
CPT/HCPCS: 72100; 84703; A4663; J2270; Q0162

== ENCOUNTER 2017-02-09 07:28 | Inpatient (IN) | payer MEDICARE, OTHER ==
[~2017-02-09] VITALS: Ht 162.6 cm; Wt 62.6 kg
[2017-02-09] VITALS (10 sets, daily range): BP systolic 101–135; BP diastolic 63–90
[2017-02-09] MEDS ORDERED: ONDANSETRON IV *ER 4 MG/2 ML VIAL IV ONE (08:00)
[2017-02-09] MEDS ORDERED: IV NS 1000 ML 1,000 ML IV ONE ×3 (08:00→13:00)
[2017-02-09] MEDS ORDERED: PANTOPRAZOLE SODIUM 40 MG VIAL IV ONE (08:00)
[2017-02-09] MEDS ORDERED: ONDANSETRON 4 MG/2 ML VIAL ONE ×2 (08:08→09:30)
[2017-02-09] MEDS ORDERED: PANTOPRAZOLE SODIUM 40 MG VIAL ONE (08:08)
[2017-02-09 08:20] LABS: BASOPHILS # (AUTO) 0.1 K/uL (0.0-8.0); EOSINOPHILS % (AUTO) 0.4 % (0.0-7.0); HEMATOCRIT 32.4 % (37-47); HEMOGLOBIN 10.4 G/DL (12.0-16.0); LYMPHOCYTES # (AUTO) 0.5 K/UL (0.8-4.8); LYMPHOCYTES % (AUTO) 6.6 % (20.5-51.5); MEAN CORPUSCULAR HGB CONC 32 g/dL (32.0-37.0); MEAN CORPUSCULAR VOLUME 108.3 FL (81.0-99.0); MONOCYTES # (AUTO) 0.3 K/UL (0.1-1.30); MONOCYTES % (AUTO) 4.1 % (0.0-11.0); NEUTROPHILS # (AUTO) 7.1 K/UL (1.8-8.9); NEUTROPHILS % (AUTO) 87.9 % (38.5-71.5); PLATELET COUNT (AUTO) 284 K/UL (150-450); RED BLOOD CELL COUNT(AUTO) 2.99 MIL/UL (4.2-5.4)
[2017-02-09 08:27] LABS: *URINE HCG, QUAL NEGATIVE (NEGATIVE)
[2017-02-09 08:29] LABS: *BILIRUBIN,URIN NEGATIVE (NEGATIVE); *BLOOD, URINE NEGATIVE (NEGATIVE); *CLARITY,URINE CLEAR (CLEAR); *COLOR,URINE YELLOW (YELLOW); *KETONES,URINE NEGATIVE (NEGATIVE); *PROTEIN,URINE NEGATIVE (NEGATIVE); *UROBILINOGEN,URINE 0.2 E.U./dl (NORMAL); LEUKOCYTE ESTERASE ,URINE NEGATIVE (NEGATIVE); NITRITE, URINE NEGATIVE (NEGATIVE)
[2017-02-09] MEDS: INSULIN REGULAR, HUMAN 1,000 UNITS/10 ML VIAL IV ONE ×2 (08:29→08:44)
[2017-02-09] MEDS ORDERED: INSULIN REGULAR, HUMAN 300 UNIT/3 ML VIAL ONE (08:35)
[2017-02-09 08:38] LABS: UGLUCOSE 3+ (NEGATIVE)
[2017-02-09 08:40] LABS: BACTERIA,URINE NONE SEEN /HPF (NONE SEEN); RBC,URINE NONE SEEN /HPF (0-3); SQUAMOUS EPITHELIAL CELL,UR FEW /HPF (NONE SEEN); WBC,URINE NONE SEEN /HPF (0-3)
[2017-02-09] MEDS ORDERED: INSULIN REGULAR, HUMAN 1,000 UNITS/10 ML VIAL IV ONE (08:45)
[2017-02-09 08:54] LABS: BAND % (MANUAL) 2 % (0-10); LYMPHOCYTES % (MANUAL) 7 % (20-40); MONOCYTES % (MANUAL) 5 % (2-10); NEUTROPHILS % (MANUAL) 86 % (42-75)
[2017-02-09] MEDS ORDERED: MORPHINE SULFATE 2 MG/1 ML DISP.SYRIN IV ONE (09:15)
[2017-02-09] MEDS ORDERED: MORPHINE SULFATE 2 MG/1 ML DISP.SYRIN ONE (09:28)
[2017-02-09] MEDS ORDERED: ONDANSETRON 4 MG/2 ML VIAL IV ONE (09:30)
[2017-02-09 09:37] LABS: CARBON DIOXIDE 19 mmol/L (21-32); CHLORIDE 99 mmol/L (98-107); CREATININE 1.6 mg/dL (0.6-1.3); POTASSIUM 3.5 mmol/L (3.5-5.1); UREA NITROGEN, BLOOD 9 mg/dL (7-18)
[2017-02-09 09:39] LABS: ALANINE AMINOTRANSFERASE 28 U/L (14-59); ALKALINE PHOSPHATASE 222 U/L (50-136); ASPARTATE AMINOTRANSFERASE 50 U/L (15-37); BILIRUBIN,TOTAL 0.4 mg/dL (0.2-1.0); CREATINE KINASE, TOTAL 79 U/L (26-192); GLUCOSE 650 mg/dL (74-106); TOTAL PROTEIN, SERUM 6.3 g/dL (6.4-8.2)
[2017-02-09] MEDS ORDERED: ONDANSETRON 4 MG/2 ML VIAL IV PRN (12:00)
[2017-02-09] MEDS ORDERED: BLOOD SUGAR DIAGNOSTIC 1 EACH STRIP VI SCH ×3 (12:00→20:00)
[2017-02-09] MEDS ORDERED: Z GUARD REMEDY PASTE 57 GM TUBE TOP PRN (12:00)
[2017-02-09] MEDS ORDERED: INSULIN REGULAR, HUMAN 300 UNIT/3 ML VIAL SQ PRN (12:00)
[2017-02-09] MEDS ORDERED: ACETAMINOPHEN 325 MG TABLET PO PRN (12:00)
[2017-02-09] MEDS ORDERED: ZOLPIDEM 5 MG TABLET PO PRN (12:00)
[2017-02-09] MEDS ORDERED: DEXTROSE 50% 50 ML DISP.SYRIN IV PRN ×3 (12:00→18:30)
[2017-02-09] MEDS ORDERED: HALOPERIDOL 0.5 MG TABLET PO PRN ×2 (12:15→14:30)
[2017-02-09] MEDS ORDERED: ALBUTEROL SULFATE 2.5 MG/3 ML NEBU NEB PRN (12:15)
[2017-02-09] MEDS ORDERED: FLUTICASONE/SALMETEROL 250/50 INHALER IH PRN (12:15)
[2017-02-09] MEDS ORDERED: TRAZODONE 50 MG TABLET PO PRN (12:15)
[2017-02-09] MEDS ORDERED: INSULIN REGULAR, HUMAN 100 UNIT in IV NORMAL SALINE 99 ML IV PRN ×4 (12:30→14:00)
[2017-02-09] MEDS ORDERED: LIPASE/PROTEASE/AMYLASE 4200 UNITS CAPSULE.DR PO SCH (13:00)
[2017-02-09] MEDS ORDERED: IV NS 1000 ML 1,000 ML IV PRN (14:00)
[2017-02-09] MEDS: DRONABINOL 2.5 MG CAPSULE PO SCH ×2 (14:00→17:35)
[2017-02-09 15:41] LABS: MAGNESIUM 1.6 mg/dL (1.8-2.4); POTASSIUM 3.9 mmol/L (3.5-5.1)
[2017-02-09] MEDS: MORPHINE SULFATE 2 MG/1 ML DISP.SYRIN IV PRN ×2 (15:41→19:49)
[2017-02-09] MEDS: FLUTICASONE/SALMETEROL 250/50 INHALER IH SCH (17:35)
[2017-02-09] MEDS: PREGABALIN 100 MG CAPSULE PO SCH (17:35)
[2017-02-09] MEDS: CLONAZEPAM 0.5 MG TABLET PO SCH (17:36)
[2017-02-09] MEDS: PANTOPRAZOLE SODIUM 40 MG TABLET.DR PO SCH (17:36)
[2017-02-09] MEDS: LIPASE/PROTEASE/AMYLASE 4200 UNITS CAPSULE.DR PO SCH (17:36)
[2017-02-09] MEDS: HALOPERIDOL 5 MG TABLET PO SCH (17:36)
[2017-02-09] MEDS: AZATHIOPRINE 50 MG TABLET PO SCH (18:35)
[2017-02-09] MEDS: BLOOD SUGAR DIAGNOSTIC 1 EACH STRIP VI SCH (19:49)
[2017-02-09] MEDS: TRAZODONE 100 MG TABLET PO SCH ×2 (20:42→21:00)
[2017-02-09 20:59] LABS: CREATININE 1.2 mg/dL (0.6-1.3); MAGNESIUM 1.5 mg/dL (1.8-2.4); PHOSPHOROUS 3.2 mg/dL (2.5-4.9); POTASSIUM 4.2 mmol/L (3.5-5.1)
[2017-02-09] MEDS: MAGNESIUM SULFATE/D5W 100 ML IV SCH ×3 (21:20→23:25)
[2017-02-09] MEDS ORDERED: MAGNESIUM SULFATE/D5W 100 ML ONE (23:35)
[2017-02-10] VITALS (12 sets, daily range): BP systolic 95–137; BP diastolic 63–98
[2017-02-10] MEDS ORDERED: MAGNESIUM SULFATE/D5W 100 ML ONE (00:06)
[2017-02-10] MEDS: BLOOD SUGAR DIAGNOSTIC 1 EACH STRIP VI SCH ×4 (00:19→12:17)
[2017-02-10] MEDS: MAGNESIUM SULFATE/D5W 100 ML IV SCH (00:23)
[2017-02-10] MEDS: INSULIN REGULAR, HUMAN 300 UNIT/3 ML VIAL SQ PRN ×2 (00:26→12:24)
[2017-02-10 01:55] LABS: CREATININE 1.1 mg/dL (0.6-1.3); PHOSPHOROUS 2.3 mg/dL (2.5-4.9); POTASSIUM 3.9 mmol/L (3.5-5.1)
[2017-02-10 05:16] LABS: BASOPHILS # (AUTO) 0.1 K/uL (0.0-8.0); BASOPHILS % (AUTO) 1.2 % (0.0-2.0); EOSINOPHILS # (AUTO) 0.1 K/uL (0.0-0.7); EOSINOPHILS % (AUTO) 2.1 % (0.0-7.0); HEMATOCRIT 28.8 % (37-47); HEMOGLOBIN 9.7 G/DL (12.0-16.0); LYMPHOCYTES # (AUTO) 2.2 K/UL (0.8-4.8); LYMPHOCYTES % (AUTO) 37.3 % (20.5-51.5); MEAN CORPUSCULAR HEMOGLOBIN 34.3 UUG (27.0-31.0); MEAN CORPUSCULAR HGB CONC 34 g/dL (32.0-37.0); MEAN CORPUSCULAR VOLUME 101.5 FL (81.0-99.0); MONOCYTES # (AUTO) 0.3 K/UL (0.1-1.30); MONOCYTES % (AUTO) 4.8 % (0.0-11.0); NEUTROPHILS # (AUTO) 3.3 K/UL (1.8-8.9); NEUTROPHILS % (AUTO) 54.6 % (38.5-71.5); PLATELET COUNT (AUTO) 277 K/UL (150-450); RED BLOOD CELL COUNT(AUTO) 2.83 MIL/UL (4.2-5.4)
[2017-02-10 05:36] LABS: BILIRUBIN,TOTAL 0.3 mg/dL (0.2-1.0); CREATININE 0.9 mg/dL (0.6-1.3); MAGNESIUM 2.7 mg/dL (1.8-2.4); PHOSPHOROUS 2.2 mg/dL (2.5-4.9); POTASSIUM 3.6 mmol/L (3.5-5.1); TOTAL PROTEIN, SERUM 5.4 g/dL (6.4-8.2)
[2017-02-10 06:01] LABS: THYROID STIMULATING HORMONE 0.137 mIU/mL (0.358-3.740)
[2017-02-10] MEDS: PANTOPRAZOLE SODIUM 40 MG TABLET.DR PO SCH (06:16)
[2017-02-10] MEDS: MORPHINE SULFATE 2 MG/1 ML DISP.SYRIN IV PRN ×2 (06:38→10:44)
[2017-02-10] MEDS: POTASSIUM PHOSPHATE MM 7.5 MMOL in IV DEXTROSE 5% 100 ML IV SCH ×2 (07:50→10:07)
[2017-02-10] MEDS: LIPASE/PROTEASE/AMYLASE 4200 UNITS CAPSULE.DR PO SCH ×2 (08:01→12:25)
[2017-02-10] MEDS: PREGABALIN 100 MG CAPSULE PO SCH (08:01)
[2017-02-10] MEDS: CLONAZEPAM 0.5 MG TABLET PO SCH (08:01)
[2017-02-10] MEDS: DRONABINOL 2.5 MG CAPSULE PO SCH (08:02)
[2017-02-10] MEDS: AZATHIOPRINE 50 MG TABLET PO SCH (08:03)
[2017-02-10] MEDS: FLUTICASONE/SALMETEROL 250/50 INHALER IH SCH (08:03)
[2017-02-10] MEDS: HALOPERIDOL 5 MG TABLET PO SCH (08:03)
[2017-02-10] MEDS ORDERED: SERTRALINE HCL 50 MG TABLET PO SCH (09:00)
[2017-02-10] MEDS ORDERED: AZIT250T PO (09:59)
== END 2017-02-10 13:56 | disposition home or self-care (01) | DRG 637 ==
LOC: ER 07:28 → TELE 11:31 → CCU 13:17
PROVIDERS: ADMIT Nurse Practitioner Acute Care; ATTEND Nurse Practitioner Acute Care
PROC: 05H633Z Insertion of Infusion Device into Left Subclavian Vein, Percutaneous Approach (ICD-10-PCS; principal; 2017-02-10)
DX: E13.10 Other specified diabetes mellitus with ketoacidosis without coma (principal); G93.40 Encephalopathy, unspecified; E87.1 Hypo-osmolality and hyponatremia; D63.8 Anemia in other chronic diseases classified elsewhere; E83.42 Hypomagnesemia; F41.9 Anxiety disorder, unspecified; M79.7 Fibromyalgia; I10 Essential (primary) hypertension; H54.8 Legal blindness, as defined in USA; G89.4 Chronic pain syndrome; F31.9 Bipolar disorder, unspecified; M32.9 Systemic lupus erythematosus, unspecified; Z79.4 Long term (current) use of insulin; Z93.0 Tracheostomy status; Z93.1 Gastrostomy status; Z90.410 Acquired total absence of pancreas; Z88.0 Allergy status to penicillin; Z88.2 Allergy status to sulfonamides; Z88.8 Allergy status to other drugs, medicaments and biological substances; Z88.1 Allergy status to other antibiotic agents; Z91.041 Radiographic dye allergy status; Z91.040 Latex allergy status; Z91.011 Allergy to milk products; Z86.73 Personal history of transient ischemic attack (TIA), and cerebral infarction without residual deficits; Z79.899 Other long term (current) drug therapy; D75.89 Other specified diseases of blood and blood-forming organs; R55 Syncope and collapse
CPT/HCPCS: 36415; 70030-TC; 83605; 83735; 84100; 84443; 84703; 85025; 85610; 93005; A4663; C1751; C9113; J1815; J2270; J2405; J3475; J3490; J7030; J7040; J7060; J7500; Q0167

== ENCOUNTER 2017-11-10 14:35 | Emergency (ER) | payer MEDICARE, OTHER ==
[~2017-11-10] VITALS: Ht 162.6 cm; Wt 63.5 kg
[~2017-11-10 14:35] MED LIST changes: +AZIT250T PO; -DRON5CAP PO; +DRON5CAP15 PO
--- NOTE | 2017-11-10 14:50 | NUR ---
Pt triaged and placed in ER lobby, there are no ER beds available at this time. Caregiver is with pt, urine specimen obtained and sent to lab.
[2017-11-10 15:03] LABS: *BILIRUBIN,URIN NEGATIVE (NEGATIVE); *BLOOD, URINE NEGATIVE (NEGATIVE); *CLARITY,URINE CLEAR (CLEAR); *COLOR,URINE YELLOW (YELLOW); *KETONES,URINE NEGATIVE (NEGATIVE); *PROTEIN,URINE NEGATIVE (NEGATIVE); *UROBILINOGEN,URINE 0.2 E.U./dl (NORMAL); LEUKOCYTE ESTERASE ,URINE NEGATIVE (NEGATIVE); NITRITE, URINE NEGATIVE (NEGATIVE)
[2017-11-10 15:09] LABS: *URINE HCG, QUAL NEGATIVE (NEGATIVE)
--- NOTE | 2017-11-10 15:10 | NUR ---
Pt placed in room 2b for eval.
[2017-11-10 15:16] LABS: UGLUCOSE 2+ (NEGATIVE)
[2017-11-10 15:19] LABS: RBC,URINE 0-3 /HPF (0-3); SQUAMOUS EPITHELIAL CELL,UR FEW /HPF (NONE SEEN); WBC,URINE 0-3 /HPF (0-3)
[2017-11-10] MEDS ORDERED: TDAP DIPH,PERTUSS,TET VAC/PF 0.5 ML DISP.SYRIN IM ONE ×2 (17:00→17:04)
--- NOTE | 2017-11-10 17:10 | NUR ---
Patient discharged to home in stable conditon. Written and verbal after care instructions given. Patient verbalizes understanding of instructions. Pt left ER accompained by caregiver.
== END 2017-11-10 17:12 | disposition home or self-care (01) ==
LOC: ER 14:35
DX: S61.251A Open bite of left index finger without damage to nail, initial encounter (principal); N39.0 Urinary tract infection, site not specified; Z86.73 Personal history of transient ischemic attack (TIA), and cerebral infarction without residual deficits; E11.9 Type 2 diabetes mellitus without complications; F17.210 Nicotine dependence, cigarettes, uncomplicated; Z88.2 Allergy status to sulfonamides; Z88.1 Allergy status to other antibiotic agents; Z88.0 Allergy status to penicillin; Z88.8 Allergy status to other drugs, medicaments and biological substances; Z91.040 Latex allergy status; Z79.51 Long term (current) use of inhaled steroids; Z79.891 Long term (current) use of opiate analgesic; Z79.2 Long term (current) use of antibiotics; Z79.899 Other long term (current) drug therapy; W55.11XA Bitten by horse, initial encounter; Y93.89 Activity, other specified; Y92.89 Other specified places as the place of occurrence of the external cause; Y99.8 Other external cause status
CPT/HCPCS: 84703; 90715; A4663